=== PATIENT | female | born 1995 | race Caucasian/White ===

== ENCOUNTER 2017-11-12 10:25 | Day surgery (SDC) | payer OTHER ==
[2017-11-12] MEDS ORDERED: MIDAZOLAM 1 MG/ML 2 ML INJ (12:24)
[2017-11-12] MEDS: CEFTRIAXONE 1 GM/NS 50 ML IVPB (12:32)
[2017-11-12] MEDS ORDERED: ONDANSETRON 4 MG INJ (13:39)
[2017-11-12] MEDS ORDERED: PROPOFOL 20 ML (13:39)
[2017-11-12] MEDS ORDERED: LIDOCAINE 2% (SDV) 5 ML INJ (13:39)
[2017-11-12] MEDS ORDERED: HYDROmorphONE (0.2 MG/ML) 10ML SYG IV ×2 (14:00)
[2017-11-12] MEDS ORDERED: ONDANSETRON 4 MG INJ IV (14:00)
[2017-11-12] MEDS ORDERED: DIPHENHYDRAMINE 50 MG INJ IV (14:00)
[2017-11-12] MEDS ORDERED: FENTAnyl 50 MCG/ML VIAL IV (14:00)
[2017-11-12] MEDS ORDERED: HYDROCODONE/APAP (5/325) TAB PO (14:00)
[2017-11-12] MEDS: METOCLOPRAMIDE 10 MG INJ IV (15:03)
== END 2017-11-12 15:30 | disposition home or self-care (01) ==
LOC: SDS 10:25
DX: N20.2 Calculus of kidney with calculus of ureter (principal)
CPT/HCPCS: 52356; 74430; 87086; 88300

== ENCOUNTER 2017-12-29 15:49 | Emergency (ER) | payer OTHER | END 2017-12-29 18:40 | disposition home or self-care (01) | LOC: FTE 15:49 | DX: H60.90 Unspecified otitis externa, unspecified ear (principal) | CPT/HCPCS: 99283; Z7502 ==

== ENCOUNTER 2018-01-12 14:29 | Emergency (ER) | payer OTHER ==
[2018-01-12] MEDS: SOD CHLORIDE 0.9% 1,000 ML IV (16:28)
[2018-01-12] MEDS: ONDANSETRON 4 MG INJ IV (16:28)
[2018-01-12] MEDS: KETOROLAC 15 MG INJ IV (16:29)
[2018-01-12 16:30] LABS: ADD MAN DIFF? NO
[2018-01-12 16:33] LABS: BASOPHILS % 0.4 % (0.0-2.0); EOSINOPHILS # 0.1 10^3/ul (0.0-0.5); EOSINOPHILS % 0.7 % (0.0-7.0); HEMATOCRIT 35.9 % (37.0-47.0); HEMOGLOBIN 11.7 g/dl (12.0-16.0); LYMPHOCYTES # 2.1 10^3/ul (0.8-2.9); LYMPHOCYTES % 26.3 % (15.0-51.0); MEAN CORPUSCULAR HEMOGLOBIN 28.3 pg (29.0-33.0); MEAN CORPUSCULAR HGB CONC 32.6 g/dl (32.0-37.0); MEAN CORPUSCULAR VOLUME 86.9 fl (82.0-101.0); MEAN PLATELET VOLUME 12.1 fl (7.4-10.4); MONOCYTE # 0.7 10^3/ul (0.3-0.9); MONOCYTES % 8.1 % (0.0-11.0); NEUTROPHIL # 5.2 10^3/ul (1.6-7.5); NEUTROPHILS % 64.4 % (39.0-77.0); PLATELET COUNT 198 10^3/UL (140-415); RED BLOOD COUNT 4.13 10^6/ul (4.20-5.40); RED CELL DISTRIBUTION WIDTH 13.4 % (11.5-14.5)
[2018-01-12 16:36] LABS: ADD UMIC YES; UR ASCORBIC ACID NEGATIVE (NEGATIVE); UR BILIRUBIN (Dip) NEGATIVE (NEGATIVE); UR BLOOD (Dip) 1+ mg/dL (NEGATIVE); UR CLARITY SLIGHTLY CLOUDY (CLEAR); UR COLOR STRAW (YELLOW); UR GLUCOSE (Dip) NEGATIVE (NEGATIVE); UR KETONES (Dip) NEGATIVE (NEGATIVE); UR LEUKOCYTE ESTERASE (Dip) NEGATIVE Leu/ul (NEGATIVE); UR NITRITE (Dip) NEGATIVE (NEGATIVE); UR RBC 4 /HPF (0-5); UR SPECIFIC GRAVITY (Dip) 1.015 (1.003-1.030); UR SQUAMOUS EPITHELIAL CELL FEW /HPF (FEW); UR TOTAL PROTEIN (Dip) NEGATIVE (NEGATIVE); UR UROBILINOGEN (Dip) NEGATIVE (NEGATIVE); UR WBC 1 /HPF (0-5)
[2018-01-12 16:55] LABS: ALANINE AMINOTRANSFERASE 33 IU/L (13-69); ALBUMIN 4.5 g/dl (3.3-4.9); ALBUMIN/GLOBULIN RATIO 1.15; ALKALINE PHOSPHATASE 84 IU/L (42-121); ANION GAP 19 (8-16); ASPARTATE AMINO TRANSFERASE 26 IU/L (15-46); BILIRUBIN,INDIRECT 0.1 mg/dl (0-1.1); BILIRUBIN,TOTAL 0.1 mg/dl (0.2-1.3); BLOOD UREA NITROGEN 15 mg/dl (7-20); CALCIUM 9.5 mg/dl (8.4-10.2); CARBON DIOXIDE 24 mmol/L (21-31); CHLORIDE 104 mmol/L (97-110); CREATININE 0.83 mg/dl (0.44-1.00); GLUCOSE 86 mg/dl (70-220); LIPASE 152 U/L (23-300); POTASSIUM 3.8 mmol/L (3.5-5.1); SODIUM 143 mmol/L (135-144); TOTAL PROTEIN 8.4 g/dl (6.1-8.1)
== END 2018-01-12 18:53 | disposition home or self-care (01) ==
LOC: FTE 14:29
DX: R10.32 Left lower quadrant pain (principal)
CPT/HCPCS: 36415; 74176; 80053; 81001; 81025; 83690; 85025; 96374; 96375; 99285-25